=== PATIENT | female | born 1970 | race American Indian/Alaskan Native ===

== ENCOUNTER 2020-08-18 15:36 | Emergency (ER) | payer BC ==
[2020-08-18 16:31] LABS: Basophils % (Auto) 0.4 % (0.0-1.8); Eosinophils # (Auto) 0.1 K/mm3 (0.0-0.4); Eosinophils % (Auto) 1.6 % (0.0-4.3); Hematocrit 40.7 % (30.3-42.9); Hemoglobin 14.2 gm/dl (10.1-14.3); Lymphocytes # (Auto) 1.4 K/mm3 (1.2-5.4); Lymphocytes % (Auto) 22.9 % (13.4-35.0); Mean Corpuscular HGB Conc 35 % (30-34); Mean Corpuscular Volume 85 fl (79-97); Monocytes # (Auto) 0.5 K/mm3 (0.0-0.8); Monocytes % (Auto) 8.6 % (0.0-7.3); Platelet Count 199 K/mm3 (140-440); Red Blood Count 4.78 M/mm3 (3.65-5.03); Red Cell Distribution Width 13.8 % (13.2-15.2)
[2020-08-18 16:44] LABS: Albumin 4.3 g/dL (3.9-5); Calcium 10.2 mg/dL (8.4-10.2)
[2020-08-18] MEDS ORDERED: IBUPROFEN 800 MG TAB PO ONE (16:54)
[2020-08-18] MEDS ORDERED: METOPROLOL TARTRATE 50 MG TAB PO ONE (16:54)
--- NOTE | 2020-08-18 16:59 | Emergency Department Report ---
ED General Adult HPI - General Chief complaint: Pain General Stated complaint: BODY/JAW PAIN Time Seen by Provider: 08/18/20 16:12 Source: patient Mode of arrival: Ambulatory Limitations: No Limitations - History of Present Illness Initial comments: Patient is a 50-year-old F Citizen Of [place] female who is presenting with headache mostly on the right side. Patient states she believe the headache is coming from 2 different things. First patient states she has a right-sided toothache which is been present for the last several days. States the pain is in the right lower second molar which is been broken for some time but the pain radiates up into her right side of her head. She also states that she recently just restarted her metoprolol 25 mg twice daily. She did not take this medication today. She had weaned herself off of blood pressure medications but was just recently restarted. She believes that her blood pressure elevation causing headache as well. States the headache is pounding 7 out of 10 in severity. She denies nausea vomiting diarrhea fevers chills. She is on ciprofloxacin currently for bladder infection. She is only been on this medication for 2 to 3 days. Severity scale (0 -10): 0 - Related Data Home Medications Medication Instructions Recorded Confirmed Last Taken Insulin Glulisine [Apidra] 25 units SUB-Q QPM 05/20/16 08/20/16 08/31/16 metFORMIN XR [Glucophage XR] 850 mg PO BID 05/20/16 08/20/16 08/31/16 Previous Rx's Medication Instructions Recorded Last Taken Type AtorvaSTATin [Lipitor] 40 mg PO QHS #30 tablet 04/25/16 08/31/16 Rx Clopidogrel [Plavix] 75 mg PO QDAY #30 tablet 04/25/16 08/23/16 Rx Metoprolol [Lopressor TAB] 25 mg PO BID #60 tablet 09/05/16 Unknown Rx Clindamycin [Clindamycin CAP] 300 mg PO Q8H #21 cap 08/18/20 Unknown Rx HYDROcodone/APAP 5-325 [[place] 1 each PO Q6HR PRN #14 tablet 08/18/20 Unknown Rx 5/325] Ibuprofen [Motrin 800 MG tab] 800 mg PO Q8HR PRN #10 tablet 08/18/20 Unknown Rx hydroCHLOROthiazide [HCTZ] 25 mg PO QDAY #30 tablet 08/18/20 Unknown Rx Allergies Allergy/AdvReac Type Severity Reaction Status Date / Time No Known Allergies Allergy Verified 12/27/15 06:33 ED Review of Systems ROS: Stated complaint: BODY/JAW PAIN Other details as noted in HPI Comment: All other systems reviewed and negative ED Past Medical Hx - Past Medical History Previous Medical History?: Yes Hx Congestive Heart Failure: No Hx Diabetes: Yes (I) Hx Renal Disease: Yes Hx Kidney Stones: Yes Hx Asthma: No Hx COPD: No Additional medical history: kidney stones, UTI - Surgical History Past Surgical History?: Yes Additional Surgical History: kidney stone removal Nephrectomy tube, c section x3 - Social History Smoking Status: Former Smoker Substance Use Type: None - Medications Home Medications: Home Medications Medication Instructions Recorded Confirmed Last Taken Type AtorvaSTATin [Lipitor] 40 mg PO QHS #30 tablet 04/25/16 08/20/16 08/31/16 Rx Clopidogrel [Plavix] 75 mg PO QDAY #30 tablet 04/25/16 09/01/16 08/23/16 Rx Insulin Glulisine [Apidra] 25 units SUB-Q QPM 05/20/16 08/20/16 08/31/16 History metFORMIN XR [Glucophage XR] 850 mg PO BID 05/20/16 08/20/16 08/31/16 History Metoprolol [Lopressor TAB] 25 mg PO BID #60 tablet 09/05/16 Unknown Rx Clindamycin [Clindamycin CAP] 300 mg PO Q8H #21 cap 08/18/20 Unknown Rx HYDROcodone/APAP 5-325 [[place] 1 each PO Q6HR PRN #14 tablet 08/18/20 Unknown Rx 5/325] Ibuprofen [Motrin 800 MG tab] 800 mg PO Q8HR PRN #10 tablet 08/18/20 Unknown Rx hydroCHLOROthiazide [HCTZ] 25 mg PO QDAY #30 tablet 08/18/20 Unknown Rx ED Physical Exam - General Limitations: No Limitations General appearance: alert, in no apparent distress - Head Head exam: Present: atraumatic, normocephalic - Eye Eye exam: Present: normal appearance, PERRL, EOMI - ENT ENT exam: Present: mucous membranes moist - Expanded ENT Exam Expanded Mouth exam: Present: normal external inspection 1 - Fractured, Dental Tenderness - Neck Neck exam: Present: normal inspection - Respiratory Respiratory exam: Present: normal lung sounds bilaterally. Absent: respiratory distress, wheezes, rales, rhonchi - Cardiovascular Cardiovascular Exam: Present: regular rate, normal rhythm, normal heart sounds. Absent: systolic murmur, diastolic murmur, rubs, gallop - GI/Abdominal GI/Abdominal exam: Present: soft, normal bowel sounds. Absent: distended, tenderness, guarding, rebound - Extremities Exam Extremities exam: Present: normal inspection - Back Exam Back exam: Present: normal inspection - Neurological Exam Neurological exam: Present: alert, oriented X3 - Psychiatric Psychiatric exam: Present: normal affect, normal mood - Skin Skin exam: Present: warm, dry, intact, normal color. Absent: rash ED Course Vital Signs 08/18/20 08/18/20 15:53 16:38 Temperature 99.2 F Pulse Rate 70 69 Respiratory 20 18 Rate Blood Pressure 215/115 Blood Pressure 121/110 [Left] O2 Sat by Pulse 100 98 Oximetry ED Medical Decision Making - Lab Data Result diagrams: 08/18/20 15:57 08/18/20 15:57 - Medical Decision Making Patient is a 50-year-old F Citizen Of [place] female who is complaining of right-sided headache. She does have likely dental abscess. Patient did not take her metoprolol today and was given 50 mg of metoprolol. Patient can continue with her metoprolol 25 mg daily I will also add hydrochlorothiazide to her regimen for better blood pressure control. Patient has been off of blood pressure medications for quite some time and do not believe that the metoprolol 25mg twice daily is effective. States even when she is taking his medication her blood pressure is running approximately 1 60-1 70 systolic. Patient started on clindamycin for dental abscess and referred to dentist. Critical care attestation.: If time is entered above; I have spent that time in minutes in the direct care of this critically ill patient, excluding procedure time. ED Disposition Clinical Impression: Hypertensive urgency, Headache, Dental abscess Disposition: TO HOME OR SELFCARE Is pt being admited?: No Does the pt Need Aspirin: No Condition: Stable Instructions: Dental Abscess, Preventing Hypertension Referrals: KARO LARSON MD [Primary Care Provider] - 3-5 Days Time of Disposition: 17:01
[2020-08-18 17:15] VITALS: BP 212/110
== END 2020-08-18 18:34 | disposition home or self-care (01) ==
LOC: ED 15:36
DX: K04.7 Periapical abscess without sinus (principal); R51.9 Headache, unspecified; I16.0 Hypertensive urgency; Z98.890 Other specified postprocedural states; Z87.891 Personal history of nicotine dependence; Z79.1 Long term (current) use of non-steroidal anti-inflammatories (NSAID); Z79.84 Long term (current) use of oral hypoglycemic drugs; Z79.899 Other long term (current) drug therapy
CPT/HCPCS: 36415; 80053; 85025